=== PATIENT | female | born 1945 | race Caucasian/White ===

== ENCOUNTER 2020-10-17 11:24 | Emergency (ER) | payer MEDICARE, MEDICAID ==
[~2020-10-17] VITALS: Ht 152.4 cm; Wt 66.0 kg
[2020-10-17] MEDS ORDERED: ATOR10TA69 PO (11:30)
[2020-10-17] MEDS ORDERED: TRAZ-251 PO (11:30)
[2020-10-17] MEDS ORDERED: VALS1TAB75 PO (11:30)
[2020-10-17] MEDS ORDERED: MULTIVITAMINS (11:30)
[2020-10-17] MEDS ORDERED: SODIUM CHLORIDE 0.9% 1,000 ML IV ONE (12:15)
[2020-10-17 12:22] LABS: HEMATOCRIT. 38.8 % (36.0-48.0); HEMOGLOBIN. 13.1 g/dL (12.0-16.0); MEAN CORPUSCULAR HEMOGLOBIN 28.8 pg (28.0-32.0); MEAN CORPUSCULAR VOLUME 85.3 fL (81.0-99.0); RED BLOOD CELL COUNT 4.55 mill/uL (4.2-5.4); RED CELL DISTRIBUTION WIDTH 14.1 % (11.6-14.6)
[2020-10-17 12:28] LABS: CLARITY URINE CLEAR (CLEAR); COLOR URINE YELLOW (YELLOW); KETONES URINE NEGATIVE (NEGATIVE); LEUKOCYTE ESTERASE URINE NEGATIVE (NEGATIVE); NITRITE URINE NEGATIVE (NEGATIVE); OCCULT BLOOD URINE NEGATIVE (NEGATIVE); PH URINE 5.5 (4.5-8.0); PROTEIN URINE NEGATIVE (NEGATIVE); UROBILINOGEN URINE 0.2 E.U./dL (0.2-1.0)
[2020-10-17 12:30] LABS: CHLORIDE 107 mEq/L (98-107)
[2020-10-17 12:52] LABS: PLATELET ESTIMATE NORMAL
[2020-10-17 12:53] LABS: PLATELET 166 x1000/uL (130-400)
[2020-10-17] MEDS ORDERED: CEFTRIAXONE 2 G PREMIX 50 ML IV ONE (13:15)
[2020-10-17] MEDS ORDERED: METRONIDAZOLE 500 MG PREMIX 100 ML IV ONE (13:15)
[2020-10-17] MEDS ORDERED: AMOX-424 MT (15:51)
[2020-10-17 16:14] VITALS: BP 156/78
== END 2020-10-17 16:31 | disposition left against medical advice (07) ==
LOC: ER 11:24
DX: K57.32 Diverticulitis of large intestine without perforation or abscess without bleeding (principal); R73.9 Hyperglycemia, unspecified; I10 Essential (primary) hypertension; Z90.710 Acquired absence of both cervix and uterus
CPT/HCPCS: 36415; 74176; 80053; 81003; 83690; 85025; 87040; 93005; 96365; 96367; 99285; J0696; J3490; J7030